=== PATIENT | male | born 1960 | race African-American/Black ===

== ENCOUNTER 2024-04-12 09:27 | Emergency (ER) | payer BC ==
[~2024-04-12] VITALS: Ht 182.9 cm; Wt 85.5 kg
[2024-04-12 10:07] LABS: BASOPHILS % (AUTO) 0.5 % (0-1); EOSINOPHILS % (AUTO) 1.5 % (0-6); HEMATOCRIT 44.7 % (42.0-52.0); HEMOGLOBIN 15.1 g/dl (14.0-17.9); LYMPHOCYTES # (AUTO) 1.3 X10'3 (1.1-4.8); LYMPHOCYTES % (AUTO) 38.8 % (21-51); MEAN CORPUSCULAR HEMOGLOBIN 30.8 PG (27.0-31.0); MEAN CORPUSCULAR HGB CONC 33.8 g/dL (33.0-36.5); MEAN CORPUSCULAR VOLUME 91.1 FL (78-98); MEAN PLATELET VOLUME 8.8 FL (7.4-10.4); MONOCYTES # (AUTO) 0.4 X10'3 (0-0.9); MONOCYTES % (AUTO) 11.5 % (2-12); NEUTROPHILS # (AUTO) 1.6 X10'3 (1.8-7.7); NEUTROPHILS % (AUTO) 47.7 % (42-75); PLATELET COUNT 239 X10'3 (140-440); RED BLOOD COUNT 4.91 X10'6 (4.70-6.10); RED CELL DISTRIBUTION WIDTH 14.6 % (11.5-14.5); WHITE BLOOD COUNT 3.3 X10'3 (4.5-11.0)
[2024-04-12] MEDS: diltiazem 5mg/ml 5ml inj. IV ONE (10:15)
[2024-04-12] MEDS: normal saline 1000ML IV soln IVB ONE (10:15)
[2024-04-12 10:22] VITALS: TEMP 97.8
[2024-04-12 10:22] LABS: ALANINE AMINOTRANSFERASE 21 U/L (12-78); ALKALINE PHOSPHATASE 111 IU/L (46-116); ANION GAP 10 (8-16); ASPARTATE AMINO TRANSFERASE 21 U/L (10-37); BILIRUBIN,TOTAL 0.8 MG/DL (0.1-1.0); BLOOD UREA NITROGEN 19 MG/DL (7-18); BUN/CREATININE RATIO 19.2 (10.0-20.0); CALCIUM 9.2 MG/DL (8.5-10.1); CHLORIDE 104 MMOL/L (99-107); CREATININE 0.99 MG/DL (0.60-1.10); GLUCOSE 117 MG/DL (70-104); PRO BRAIN NATRIURETIC PEPTIDE < 30 PG/ML (0-125); SODIUM 141 MMOL/L (135-145); TOTAL CARBON DIOXIDE 26.8 MMOL/L (24-32); eCRCL 83 ML/MIN; eGFR 76 ML/MIN
[2024-04-12] MEDS: magnesium sulf-water 2g/50mL 50 ML IV PRN (10:40)
[2024-04-12] MEDS: etomidate 2mg/ml inj. IV ONE (11:28)
[2024-04-12 13:28] VITALS: BP 150/91; PULSE 73; RESP 16; O2SAT 99
== END 2024-04-12 13:39 | disposition home or self-care (01) ==
LOC: ER 09:28
DX: I49.8 Other specified cardiac arrhythmias (principal); R42 Dizziness and giddiness; I48.91 Unspecified atrial fibrillation
CPT/HCPCS: 36415; 71045; 80053; 83880; 84484; 85025; 92960; 93005; 96365; 96375; 99285; J3490; J7030; 94760; A4620